=== PATIENT | female | born 1975 | race Caucasian/White ===

== ENCOUNTER 2017-12-15 15:05 | Emergency (ER) | payer OTHER ==
[~2017-12-15] VITALS: Ht 167.6 cm; Wt 63.8 kg
[2017-12-15 15:07] VITALS: BP 135/74; PULSE 62; TEMP 36.9; O2SAT 98; Ht 167.6 cm; Wt 63.8 kg
[2017-12-15] MEDS ORDERED: [UNRECOGNIZED DRUG - CODE] OPL (15:30)
[2017-12-15] MEDS ORDERED: PRED1SUS17 OP (15:31)
[2017-12-15] MEDS ORDERED: PROPARACAINE HCL 0.5% OP SOLN 15 ML BTL OP STA (15:37)
--- NOTE | 2017-12-15 16:04 | EMERGENCY ROOM VISIT NOTE ---
History First contact with patient: 15:18 Chief Complaint: EYE ASSESSMENT Stated Complaint: CANNOT SEE History of Present Illness The patient is a 42 year old female who presents to the Emergency Room with complaints of painful eyes and difficulty seeing. The patient states that she had PRK Lasik surgery 2 days ago. She started using moxifloxacin and prednisolone drops yesterday. She states that since then, she has had burning in her eyes and a jai, gritty feeling. She feels like there is an eyelash stuck in her right eye. She is able to see somewhat, but is unable to read words clearly. She went for her postop visit yesterday and was given drops for pain in the office, but states when they wore off her symptoms returned. She called the surgeon today and they called her in a prescription for something for the pain but she did not pickling operator the prescription. She thinks that she may be allergic to 1 of the drops. She did take Benadryl 45 minutes ago and states this somewhat helped her symptoms. She rates her discomfort a 4/10. She does state that light bothers her eyes. She denies any headache or fevers. Review of Systems A complete 10 point review of systems was reviewed with the patient with pertinent positives and negatives as per history of present illness. All else were negative. Past Medical/Surgical History Surgical Problems: (1) History of tubal ligation Social History Smoking Status: Current Every Day Smoker Alcohol Use: occasionally Housing Status: lives alone Current/Historical Medications Scheduled Moxifloxacin Hcl (Ophth) (Moxeza), 1 DROPS OPL TID Prednisolone Acetate (Ophth) (Prednisolone Acetate), 1 DROPS OP QID Physical Exam Vital Signs Date Time Temp Pulse Resp B/P (MAP) Pulse Ox O2 Delivery O2 Flow Rate FiO2 18 15:07 36.9 62 18 135/74 98 Room Air Right Eye Acuity: 20/100 Left Eye Acuity: 20/200 Physical Exam VITALS: Vitals are noted on the nurse's note and reviewed by myself. Vital signs stable. GENERAL: This is a 42-year-old female, in no acute distress, well-developed well -nourished. SKIN: The skin was without rashes. EYES: Pupils equal round and reactive to light and accommodation. Conjunctiva mildly injected. Slit-lamp examination shows bandages in place to bilateral eyes, no abnormalities in the anterior chamber or evidence of corneal lacerations. NEURO: Patient was alert and oriented to person place and time. Medical Decision & Procedures Medications Administered Medications (Trade) Dose Ordered Sig/Kelly Route Start Time Stop Time Status Last Admin Dose Admin Proparacaine HCl (Alcaine 0.5% Oph Soln) 2 drops NOW STAT OP 12/15/17 15:37 12/15/17 15:38 DC 12/15/17 15:47 2 DROPS Medical Decision Differential diagnosis includes corneal abrasion, postoperative discomfort, allergic reaction, among others. The patient was evaluated as above. She presents on postop day 2 of PRK Lasik surgery. She reports a foreign body sensation in her eyes and a discomfort throughout her eyes. Slit-lamp examination was performed and shows normal postoperative findings and no acute concerning findings. She did report relief with the Alcaine drops. I spoke with the patient's surgeon from [place], Dr. Mims, who reports that he actually called and the patient a prescription for anti-inflammatory eyedrops a few hours ago and recommended that she pick these up. He states there is nothing else to be concerned about at this time and the patient may follow-up in the office as scheduled this week. The patient was informed of these findings. I do not feel that these symptoms are at all due to an allergic reaction to her drops and she was advised to continue using these. She verbalized understanding of my assessment and treatment plan and was discharged home in good condition. Medication Reconcilliation Current Medication List: was personally reviewed by me Blood Pressure Screening Patient's blood pressure: Normal blood pressure Impression Primary Impression: Postoperative pain Departure Information Dispostion Home / Self-Care Condition GOOD Referrals No Doctor, Assigned (PCP) Patient Instructions My [facility] Additional Instructions community support professional your prescription drops and start them as prescribed. Follow up with your cut off saw operator pipe blanks for further evaluation.
== END 2017-12-15 16:11 | disposition home or self-care (01) ==
LOC: C.EDB 15:06 → C.EDD 16:11
DX: G89.18 Other acute postprocedural pain (principal); F17.210 Nicotine dependence, cigarettes, uncomplicated; Z98.51 Tubal ligation status